=== PATIENT | male | born 1995 | race Caucasian/White ===

== ENCOUNTER 2022-01-18 22:11 | Emergency (ER) | payer SELFPAY ==
[~2022-01-18] VITALS: Ht 177.8 cm; Wt 90.0 kg
[2022-01-18] MEDS ORDERED: SODIUM CHLORIDE 0.9% 1,000 ML IV ONE (22:45)
[2022-01-18] MEDS ORDERED: LORAZEPAM 2MG/ML CPJ IV ONE (22:45)
[2022-01-18 23:02] VITALS: BP 117/62
[2022-01-18 23:03] LABS: BASOPHILS % 0.5 % (0.0-2.0); EOSINOPHILS % 0.1 % (0.0-5.0); HEMATOCRIT. 46.8 % (42.0-52.0); HEMOGLOBIN. 16.2 g/dL (14.0-18.0); LYMPHOCYTES % 7.9 % (20.0-50.0); MEAN CORPUSCULAR HEMOGLOBIN 32.3 pg (28.0-32.0); MEAN CORPUSCULAR VOLUME 93.6 fL (80.0-94.0); MONOCYTES % 5.5 % (2.0-8.0); PLATELET 181 x1000/uL (130-400)
[2022-01-18 23:12] LABS: CHLORIDE 101 mEq/L (98-107)
[2022-01-18 23:16] LABS: ETHANOL BLOOD 24 mg/dL
== END 2022-01-19 01:43 | disposition home or self-care (01) ==
LOC: ER 22:11
DX: T42.4X1A Poisoning by benzodiazepines, accidental (unintentional), initial encounter (principal); X58.XXXA Exposure to other specified factors, initial encounter; F32.9 Major depressive disorder, single episode, unspecified; F20.9 Schizophrenia, unspecified
CPT/HCPCS: 36415; 80053; 80320; 85025; 93005; 96361; 96374; 99284; J2060; J7030; G0480